=== PATIENT | female | born 1985 | race Caucasian/White ===

== ENCOUNTER 2025-01-11 08:57 | Outpatient (AMB) | payer BC, SELFPAY ==
--- NOTE | 2025-01-11 08:59 | MHC.PC.OV ---
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 General: She has tried [place], atkins, keto (caused elevated lfts), weight watchers, and over the counter fat burner. She has lost up to 50 lbs in the past and gained back weight. She is currently working out and following with a financial accounting manager. interested in trying weight loss drug. Manager Support: BRCA positive. She is following with Dr. Noland. She gets ca125 and ultrasounds. Fam hx: mother had ovarian ca and maternal aunt had ovarian ca. Maternal uncle had prostate ca, maternal grandfather had colon ca in 70s. 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 1. Little interest or pleasure in doing things: not at all 2. Feeling down, depressed, or hopeless: not at all 3. Trouble falling or staying asleep, or sleeping too much: not at all 4. Feeling tired or having little energy: not at all 5. Poor appetite or overeating: not at all 6. Feeling bad about yourself - or that you are a failure or have let yourself or your family down: not at all 7. Trouble concentrating on things, such as reading the newspaper or watching television: not at all 8. Moving or speaking so slowly that other people could have noticed. Or the opposite - being so fidgety or restless that you have been moving around a lot more than usual: not at all 9. Thoughts that you would be better off or of hurting yourself in some way: not at all Total score: 0 Depression Screening Interpretation: Negative Depression Screening Done: Yes 60355 - PHQ-9 Billing: Yes Source: Developed by Drs. Nam Anna, Katerina Tse, Tulio Stokes and colleagues, with an educational irving from [employer]. Thrive Questionnaire Date Thrive assessed: 01/11/25 I am a: Patient What is your living situation today?: I have a steady place to live Within the past 12 months, did the food you bought not last and you didn't have the money to get more?: Never true Within the past 12 months, did you worry whether your food would run out before you got money to buy more?: Never true Do you have trouble paying for medicines?: No Do you have trouble getting transportation to medical appointments?: No Do you have trouble paying your heating and electricity bill?: No Do you have trouble taking care of your child, family member or friend?: No Do you have trouble with day-to-day activities such as bathing, preparing meals, shopping, managing finances, etc.?: No Are you currently unemployed and looking for a job?: No Are you interested in more education?: Yes Please select the resources that you would like help with: None Currently or been in a relationship where the following occur: No concerns reported THRIVE Score: 0 AUDIT C Alcohol Use Questionnaire (AUDIT-C) 1. How often do you have a drink containing alcohol?: Monthly or less 2. How many drinks containing alcohol do you have on a typical day when you are drinking?: 1 or 2 3. How often do you have six or more drinks on one occasion?: Never Total Score: 1 AGNIESZKA-7 AMB Questionnaire AGNIESZKA-7 Date AGNIESZKA - 7 assessed: 01/11/25 Feeling nervous, anxious, or on edge: 0 = Not at all Not being able to stop or control worryin = Not at all Worrying too much about different things: 0 = Not at all Trouble relaxin = Not at all Being so restless that it is hard to sit still: 0 = Not at all Becoming easily annoyed or irritable: 0 = Not at all Feeling afraid as if something awful might happen: 0 = Not at all Total AGNIESZKA-7 score (0-4 normal; 5-9 mild; 10-14 moderate; 15-21 severe): 0 Source: Developed by Drs. Nam Anna, Katerina Tse, Tulio Stokes and colleagues, with an educational irving from [employer]. AGNIESZKA-7 Assessment Billing AGNIESZKA-7 Assessment Tool: AGNIESZKA-7 Assessment 10168 Physical exam (Primary Care) Vital Signs: Last Vital Signs Temp 98.4 F 01/11/25 09:06 Pulse 84 01/11/25 09:06 Resp 14 01/11/25 09:06 BP 104/72 01/11/25 09:06 Pulse Ox 98 01/11/25 09:06 Oxygen Delivery Method Room Air 01/11/25 09:06 BMI result Body Mass Index 41.9 Tobacco/Smoking Status: Tobacco use Status Tobacco use date assessed 01/11/25 01/11/25 09:09 Patient Tobacco Use Status Never used Tobacco 01/11/25 09:15 e-Cigarette/Vaping Use Never Used 01/11/25 09:15 PHQ-9: PHQ-9 Score PHQ-9: Total score 0 01/11/25 09:32 Depression Screening Interpretation: Negative Thrive Assessment: Date of Thrive Assessment Date Thrive assessed 01/11/25 01/11/25 09:17 Currently or been in a relationship where the following occur: No concerns reported Const Orientation/consciousness: patient oriented x3 HENMT Ears: hearing grossly normal bilaterally Neck Thyroid: Thyroid normal Lymphatic: no lymphadenopathy noted Resp Auscultation: clear to auscultation bilaterally Cardio Rate: regular rate Rhythm: regular rhythm Heart sounds: S1 normal heart sound present and S2 normal heart sound present GI Inspection: Yes normal to inspection Palpation (GI): Soft to palpation and Other GI palpation findings present (nontender, no cva tenderness) Auscultation: normoactive bowel sounds Rectal Exam - Female: deferred Skin General skin exam: no rashes or lesions noted Neuro General: patient oriented x3, gait normal and no focal motor deficits Coding Level of Care Code New Pt Level 3 (97774) Complex EM visit Add On G2211 Diagnoses Severe obesity (BMI >= 40) E66.01 BRCA gene mutation test positive Z15.01; Z15.09 Dyslipidemia E78.5 Additional Codes AGNIESZKA-7 Assessment Billing - AGNIESZKA-7 Assessment Tool: AGNIESZKA-7 Assessment 17821 ([id number]) PHQ-9 - 37818 - PHQ-9 Billing: Yes ([id number]) Assessment & Plan Assessment & Plan (1) Severe obesity (BMI >= 40): Code(s): E66.01 - Morbid (severe) obesity due to excess calories Category: Medical Plan: She will contact her insurance company to see if they cover a GLP 1. Discussed trialing this. (2) BRCA gene mutation test positive: Code(s): Z15.01 - Genetic susceptibility to malignant neoplasm of breast; Z15.09 - Genetic susceptibility to other malignant neoplasm Category: Medical Plan: she will find out which mutation she has discussed breast ca screening currently being closely monitored by Dr. Villalobos. Believes that she is getting a bilateral oophorectomy in a year. (3) Dyslipidemia: Code(s): E78.5 - Hyperlipidemia, unspecified Category: Medical Plan: We will order labs Orders: Orders Complete Blood Count Auto Diff Today E66.01 - Morbid (severe) obesity due to excess calories, E78.5 - Hyperlipidemia, unspecified, Z15.01 - Genetic susceptibility to malignant neoplasm of breast, Z15.09 - Genetic susceptibility to other malignant neoplasm Lipid Panel Today E66.01 - Morbid (severe) obesity due to excess calories, E78.5 - Hyperlipidemia, unspecified, Z15.01 - Genetic susceptibility to malignant neoplasm of breast, Z15.09 - Genetic susceptibility to other malignant neoplasm TSH reflex Free T4 Today E66.01 - Morbid (severe) obesity due to excess calories, E78.5 - Hyperlipidemia, unspecified, Z15.01 - Genetic susceptibility to malignant neoplasm of breast, Z15.09 - Genetic susceptibility to other malignant neoplasm Vitamin B12 and Folate Today E66.01 - Morbid (severe) obesity due to excess calories, E78.5 - Hyperlipidemia, unspecified, Z15.01 - Genetic susceptibility to malignant neoplasm of breast, Z15.09 - Genetic susceptibility to other malignant neoplasm Magnesium Today E66.01 - Morbid (severe) obesity due to excess calories, E78.5 - Hyperlipidemia, unspecified, Z15.01 - Genetic susceptibility to malignant neoplasm of breast, Z15.09 - Genetic susceptibility to other malignant neoplasm Comprehensive [place]. Panel Fast Today E66.01 - Morbid (severe) obesity due to excess calories, E78.5 - Hyperlipidemia, unspecified, Z15.01 - Genetic susceptibility to malignant neoplasm of breast, Z15.09 - Genetic susceptibility to other malignant neoplasm Hemoglobin A1c Today E66.01 - Morbid (severe) obesity due to excess calories, E78.5 - Hyperlipidemia, unspecified, R73.01 - Impaired fasting glucose, Z15.01 - Genetic susceptibility to malignant neoplasm of breast, Z15.09 - Genetic susceptibility to other malignant neoplasm
[2025-01-11 09:06] VITALS: BP 104/72; PULSE 84; RESP 14; TEMP 36.9; O2SAT 98; BMI 41.9
--- OUTSIDE RECORDS SUMMARY | 2025-01-11 09:25 | XMS_ITS | Continuity of Care Document ---
Author Name [facility] Organization [facility] Care Team Providers Care Vp Communications Name Role Phone [facility] Unavailable Unavailable Immunizations Combined list of available immunizations from the Department of Defense and Veterans Affairs facilities. Immunization Series Date Given Administered By Site Reaction Lot Number [id number] Code Drug Behavioral Modification Assistant Status Comments Source COVID-19 (PFIZER), MRNA, LNP-S, PF, 30 MCG/0.3 ML DOSE 2 2020 208 complet ed PFR; [id number]; 1 [place] [facility] [place] [facility] COVID-19 (PFIZER), MRNA, LNP-S, PF, 30 MCG/0.3 ML DOSE 1 2020 208 complet ed PFR; [id number]; [facility] [place] [facility] [place] [facility]
== END 2025-01-11 10:03 | disposition home or self-care (01) ==
LOC: HO.HMCFM 08:57
PROVIDERS: PCP Physician Assistant; Visit Provider Physician Assistant
DX: E78.5 Hyperlipidemia, unspecified (principal); E66.01 Morbid (severe) obesity due to excess calories; Z68.41 Body mass index [BMI] 40.0-44.9, adult; Z15.01 Genetic susceptibility to malignant neoplasm of breast; Z15.09 Genetic susceptibility to other malignant neoplasm

== ENCOUNTER → 2025-01-11 08:57 | Outpatient (BNVA) | payer BC, SELFPAY | PROVIDERS: PCP Physician Assistant; Visit Provider Physician Assistant | DX: Z76.89 Persons encountering health services in other specified circumstances (principal); E66.01 Morbid (severe) obesity due to excess calories; Z68.41 Body mass index [BMI] 40.0-44.9, adult; E78.5 Hyperlipidemia, unspecified; Z15.01 Genetic susceptibility to malignant neoplasm of breast; Z15.09 Genetic susceptibility to other malignant neoplasm | CPT/HCPCS: 96127 ==

== ENCOUNTER 2025-01-11 10:22 | Outpatient (REF) | payer BC, SELFPAY ==
--- OUTSIDE RECORDS SUMMARY | 2025-01-11 11:40 | XMS_ITS | Continuity of Care Document ---
Author Name [facility] Organization [facility] Care Team Providers Care Director Of Sustainability Name Role Phone [facility] Unavailable Unavailable Immunizations Combined list of available immunizations from the Department of Defense and Veterans Affairs facilities. Immunization Series Date Given Administered By Site Reaction Lot Number [id number] Code Drug Registered Route Associate Status Comments Source COVID-19 (PFIZER), MRNA, LNP-S, PF, 30 MCG/0.3 ML DOSE 2 2020 208 complet ed PFR; [id number]; 1 [place] [facility] [place] [facility] COVID-19 (PFIZER), MRNA, LNP-S, PF, 30 MCG/0.3 ML DOSE 1 2020 208 complet ed PFR; [id number]; 1 [facility] [facility] [place] [facility]
[2025-01-11 14:19] LABS: MANUAL DIFF FLAG NO
[2025-01-11 14:24] LABS: Basophils Absolute Auto 0.1 X10*3/uL (0.0-0.2); Eosinophils Absolute Auto 0.2 X10*3/uL (0.0-0.4); Eosinophils Percent Auto 2.1 % (0-4); Hematocrit 41.1 % (37.0-47.0); Hemoglobin 13.6 g/dl (12.0-16.0); Imm Gran Abs Auto 0.03 X10*3/uL (0.00-0.03); Imm Gran Pct Auto 0.4 % (0.0-0.4); Lymphocytes Absolute Auto 3.1 X10*3/uL (1.2-4.9); Lymphocytes Percent Auto 38.1 % (20-40); Mean Corpuscular HGB Conc 33.1 g/dl (31.0-35.0); Mean Corpuscular Hemoglobin 28.3 pg (27.0-33.0); Mean Corpuscular Volume 85.4 fL (80.0-98.0); Mean Platelet Volume 10.2 fL (9.4-12.3); Monocytes Absolute Auto 0.6 X10*3/uL (0.1-1.2); Neutrophils Absolute Auto 4.2 x10*3/uL (2.0-8.3); Neutrophils Percent Auto 51.4 % (45-73); Platelet Count 364 X10*3/uL (160-400); Red Blood Count 4.81 X10*6/uL (4.20-5.50); Red Cell Distribution Width 13.2 % (11.0-16.0); White Blood Count 8.1 X10*3/uL (4.8-10.8)
[2025-01-11 14:31] LABS: Estimated Average Glucose 105 mg/dL; Hemoglobin A1C 124.2069 umol/L; Hemoglobin A1c % 5.3 % (<6.0); Total Hemoglobin (HGBA1C) 3623.8405 umol/L
[2025-01-11 14:49] LABS: Alanine Aminotransferase 25 U/L (0-31); Albumin Level 4.1 g/dL (3.5-5.0); Alkaline Phosphatase 64 U/L (39-117); Anion Gap 12 (12-20); Aspartate Amino Transferase 21 U/L (5-31); Bilirubin Total 0.3 mg/dL (0.0-1.0); Blood Urea Nitrogen 14 mg/dL (9-16); Calcium 9.5 mg/dL (8.4-10.2); Carbon Dioxide 27 mmol/L (22-29); Chloride 102 mmol/L (96-108); Cholesterol 180 mg/dL (<200); Estimated Glomerular Filt Rate > 60; Glucose Fasting 86 mg/dL (60-99); HDL Cholesterol 65 mg/dL (>40); LDL Cholesterol Calculated 100 mg/dL (<100); Sodium 137 mmol/L (135-145); Total Protein 7.4 g/dL (6.5-8.0); Triglycerides 78 mg/dL (<150)
[2025-01-11 14:55] LABS: TSH reflex Free T4 1.77 uIU/mL (0.32-4.0)
[2025-01-11 15:06] LABS: Folate 4.7 ng/mL (> or = 4.0); Vitamin B12 662 pg/mL (200-900)
== END 2025-01-11 10:23 | disposition home or self-care (01) ==
LOC: HO.WFDLDS 10:22
PROVIDERS: Visit Provider Physician Assistant
DX: E66.01 Morbid (severe) obesity due to excess calories (principal); Z15.01 Genetic susceptibility to malignant neoplasm of breast; Z15.09 Genetic susceptibility to other malignant neoplasm; E78.5 Hyperlipidemia, unspecified; R73.01 Impaired fasting glucose
CPT/HCPCS: 36415; 80053; 80061; 82607; 82746; 83036; 83735; 84443; 85025